=== PATIENT | male | born 1975 | race Caucasian/White ===

== ENCOUNTER 2023-07-02 11:28 | Emergency (ER) | payer OTHER ==
[~2023-07-02] VITALS: Ht 152.4 cm; Wt 99.8 kg
== END 2023-07-02 13:02 | disposition home or self-care (01) ==
LOC: ED 11:28
DX: S93.401A Sprain of unspecified ligament of right ankle, initial encounter (principal); Z88.8 Allergy status to other drugs, medicaments and biological substances; X50.1XXA Overexertion from prolonged static or awkward postures, initial encounter; Y93.89 Activity, other specified; Y92.89 Other specified places as the place of occurrence of the external cause; Y99.0 Civilian activity done for income or pay